=== PATIENT | female | born 1955 | race Asian ===

== ENCOUNTER 2016-10-27 11:22 | Inpatient (IN) | payer BC ==
[2016-10-27] MEDS ORDERED: MECLIZINE 12.5 MG TAB PO STA (12:24)
[2016-10-27] MEDS ORDERED: DIAZEPAM 5 MG/ML 2 ML SYRINGE IVP STA (12:24)
--- NOTE | 2016-10-27 12:28 | ED ---
General Adult HPI - General Chief complaint: Dizziness Stated complaint: Vertigo Time Seen by Provider: 10/27/16 11:30 Source: patient, family, RN notes reviewed Mode of arrival: wheelchair Limitations: no limitations - History of Present Illness Initial comments: This is a 61-year-old female who presents to the emergency department stating that last night she started to become dizzy. Patient states she feels as though the room around her is moving. Patient denies any nausea with it. Patient states when she moves it does make the symptoms worse. Patient denies any headache patient denies any numbness or focal weakness. Patient denies any fever or chills. Patient denies any history of vertigo. Patient denies any increased hearing loss. Patient denies any tinnitus. Patient denies any palpitations chest pain difficulty breathing shortness of breath. Patient denies any abdominal pain. Patient denies any nausea vomiting diarrhea. - Related Data Home Medications Medication Instructions Recorded Confirmed Besivance 0.6% 1 drop RIGHT EYE TID 10/27/16 10/27/16 Carvedilol [Coreg] 12.5 mg PO BID 10/27/16 10/27/16 Cyanocobalamin (Vitamin B-12) 1,000 mcg PO HS 10/27/16 10/27/16 [Vitamin B-12] Difluprednate [Durezol] 1 drop RIGHT EYE DAILY 10/27/16 10/27/16 Ferrous Sulfate [Feosol] 325 mg PO HS 10/27/16 10/27/16 Furosemide [Lasix] 20 mg PO BID@0900,1600 10/27/16 10/27/16 Prolensa 0.07% 1 drop RIGHT EYE DAILY 10/27/16 10/27/16 Spironolactone [Aldactone] 12.5 mg PO BID 10/27/16 10/27/16 Valsartan [Diovan] 320 mg PO DAILY 10/27/16 10/27/16 Previous Rx's Medication Instructions Recorded Aspirin 81 mg PO DAILY chew 04/28/16 Glimepiride [Amaryl] 1 mg PO AC-SUPPER #30 tab 04/28/16 Glimepiride [Amaryl] 2 mg PO AC-BRKFST #30 tab 04/28/16 amLODIPine [Norvasc] 5 mg PO DAILY #30 tab 04/28/16 Allergies Allergy/AdvReac Type Severity Reaction Status Date / Time shellfish derived [Shellfish] Allergy Unknown Verified 10/27/16 12:17 Review of Systems ROS Statement: Those systems with pertinent positive or pertinent negative responses have been documented in the HPI. ROS Other: All systems not noted in ROS Statement are negative. Past Medical History Past Medical History: Heart Failure, Diabetes Mellitus, GERD/Reflux, Hyperlipidemia History of Any Multi-Drug Resistant Organisms: None Reported Past Surgical History: Back Surgery Additional Past Surgical History / Comment(s): ZELDA IN BACK-LAMINECTOMY, eye Past Anesthesia/Blood Transfusion Reactions: No Reported Reaction Past Psychological History: No Psychological Hx Reported Smoking Status: Never smoker Past Alcohol Use History: None Reported Past Drug Use History: None Reported - Past Family History Mother Family Medical History: Hypertension Father Family Medical History: Congestive Heart Failure (CHF) General Exam - General Exam Comments Initial Comments: GENERAL: Patient is well-developed and well-nourished. Patient is nontoxic and well- hydrated and is in mild distress. ENT: Neck is soft and supple. No significant lymphadenopathy is noted. Oropharynx is clear. Moist mucous membranes. Neck has full range of motion without eliciting any pain. EYES: The sclera were anicteric and conjunctiva were pink and moist. Extraocular movements were intact and pupils were equal round and reactive to light. Eyelids were unremarkable. Minimal nystagmus was seen when looking to the right PULMONARY: Unlabored respirations. Good breath sounds bilaterally. No audible rales rhonchi or wheezing was noted. CARDIOVASCULAR: There is a regular rate and rhythm without any murmurs gallops or rubs. ABDOMEN: Soft and nontender with normal bowel sounds. No palpable organomegaly was noted. There is no palpable pulsatile mass. SKIN: Skin is clear with no lesions or rashes and otherwise unremarkable. NEUROLOGIC: Patient is alert and oriented x3. Cranial nerves II through XII are grossly intact. Motor and sensory are also intact. Normal speech, volume and content. Symmetrical smile. Cerebellar exam grossly intact. MUSCULOSKELETAL: Normal extremities with adequate strength and full range of motion. No lower extremity swelling or edema. No calf tenderness. LYMPHATICS: No significant lymphadenopathy is noted PSYCHIATRIC: Normal psychiatric evaluation. Normal interpersonal interactions appears functionally intact in deals appropriately with others. No signs of depression. No signs of anxiety. Limitations: no limitations Course Vital Signs 10/27/16 10/27/16 10/27/16 11:23 11:52 13:28 Temperature 97.6 F 97.4 F L Pulse Rate 73 72 74 Respiratory 16 16 15 Rate Blood Pressure 114/55 123/66 128/64 O2 Sat by Pulse 98 96 96 Oximetry 10/27/16 14:40 Temperature Pulse Rate 78 Respiratory 14 Rate Blood Pressure 130/61 O2 Sat by Pulse 96 Oximetry Medical Decision Making - Medical Decision Making EKG shows normal sinus rhythm at 72 bpm WV interval is 106 QRS is 90 QT interval 392 QTC is 429. Patient's EKG shows no ST segment elevation or depression or T wave abnormalities are noted Chest x-ray shows no acute abdomen noted. CT of the brain shows no acute mallet. When I noted the troponin being elevated I reinterviewed the patient about chest pain or difficulty breathing and she stated she never had any chest pain or problems breathing. Patient's hemoglobin was low and the white count was elevated. I compared to previous white counts she is always had a high white count but never this high. - Lab Data Result diagrams: 10/27/16 12:40 10/27/16 12:40 Lab Results 10/27/16 10/27/16 10/27/16 Range/Units 12:40 12:40 12:40 WBC 34.7 H* (3.8-10.6) k/uL RBC 2.71 L (3.80-5.40) m/uL Hgb 7.6 L (11.4-16.0) gm/dL Hct 23.7 L (34.0-46.0) % MCV 87.5 (80.0-100.0) fL MCH 28.0 (25.0-35.0) pg MCHC 32.0 (31.0-37.0) g/dL RDW 16.7 H (11.5-15.5) % Plt Count 292 (150-450) k/uL Neutrophils % (Manual) 83.0 % Band Neutrophils % 5.5 % Lymphocytes % (Manual) 5.5 % Monocytes % (Manual) 2.0 % Eosinophils % (Manual) 0.5 % Metamyelocytes % 1.0 % Myelocytes % 2.5 % Neutrophils # (Manual) 30.7 H (1.3-7.7) k/uL Lymphocytes # (Manual) 1.9 (1.0-4.8) k/uL Monocytes # (Manual) 0.7 (0-1.0) k/uL Eosinophils # (Manual) 0.2 (0-0.7) k/uL Nucleated RBCs 0 (0-0) /100 WBC Manual Slide Review Performed Toxic Granulation Present Polychromasia Present Anisocytosis Slight PT (9.0-12.0) sec INR (<1.1) APTT (22.0-30.0) sec Sodium 141 (137-145) mmol/L Potassium 4.1 (3.5-5.1) mmol/L Chloride 106 (98-107) mmol/L Carbon Dioxide 26 (22-30) mmol/L Anion Gap 9 mmol/L BUN 31 H (7-17) mg/dL Creatinine 0.95 (0.52-1.04) mg/dL Est GFR (MDRD) Af Amer >60 (>60 ml/min/1.73 sqM) Est GFR (MDRD) Non-Af >60 (>60 ml/min/1.73 sqM) Glucose 223 H (74-99) mg/dL Calcium 8.2 L (8.4-10.2) mg/dL Magnesium 2.3 (1.6-2.3) mg/dL Total Bilirubin 0.5 (0.2-1.3) mg/dL AST 46 H (14-36) U/L ALT 50 (9-52) U/L Alkaline Phosphatase 70 (38-126) U/L Total Creatine Kinase 134 (30-135) U/L CK-MB (CK-2) 0.9 (0.0-2.4) ng/mL CK-MB (CK-2) Rel Index 0.7 Troponin I 0.978 H* (0.000-0.034) ng/mL Total Protein 6.1 L (6.3-8.2) g/dL Albumin 3.0 L (3.5-5.0) g/dL Urine Color Urine Appearance (Clear) Urine pH (5.0-8.0) Ur Specific [place] (1.001-1.035) Urine Protein (Negative) Urine Glucose (UA) (Negative) Urine Ketones (Negative) Urine Blood (Negative) Urine Nitrite (Negative) Urine Bilirubin (Negative) Urine Urobilinogen (<2.0) mg/dL Ur Leukocyte Esterase (Negative) Urine RBC (0-5) /hpf Urine WBC (0-5) /hpf Ur Squamous Epith Cells (0-4) /hpf Urine Bacteria (None) /hpf Hyaline Casts (0-2) /lpf Urine Mucus (None) /hpf 10/27/16 10/27/16 Range/Units 12:40 14:33 WBC (3.8-10.6) k/uL RBC (3.80-5.40) m/uL Hgb (11.4-16.0) gm/dL Hct (34.0-46.0) % MCV (80.0-100.0) fL MCH (25.0-35.0) pg MCHC (31.0-37.0) g/dL RDW (11.5-15.5) % Plt Count (150-450) k/uL Neutrophils % (Manual) % Band Neutrophils % % Lymphocytes % (Manual) % Monocytes % (Manual) % Eosinophils % (Manual) % Metamyelocytes % % Myelocytes % % Neutrophils # (Manual) (1.3-7.7) k/uL Lymphocytes # (Manual) (1.0-4.8) k/uL Monocytes # (Manual) (0-1.0) k/uL Eosinophils # (Manual) (0-0.7) k/uL Nucleated RBCs (0-0) /100 WBC Manual Slide Review Toxic Granulation Polychromasia Anisocytosis PT 10.2 (9.0-12.0) sec INR 1.0 (<1.1) APTT 27.8 (22.0-30.0) sec Sodium (137-145) mmol/L Potassium (3.5-5.1) mmol/L Chloride (98-107) mmol/L Carbon Dioxide (22-30) mmol/L Anion Gap mmol/L BUN (7-17) mg/dL Creatinine (0.52-1.04) mg/dL Est GFR (MDRD) Af Amer (>60 ml/min/1.73 sqM) Est GFR (MDRD) Non-Af (>60 ml/min/1.73 sqM) Glucose (74-99) mg/dL Calcium (8.4-10.2) mg/dL Magnesium (1.6-2.3) mg/dL Total Bilirubin (0.2-1.3) mg/dL AST (14-36) U/L ALT (9-52) U/L Alkaline Phosphatase (38-126) U/L Total Creatine Kinase (30-135) U/L CK-MB (CK-2) (0.0-2.4) ng/mL CK-MB (CK-2) Rel Index Troponin I (0.000-0.034) ng/mL Total Protein (6.3-8.2) g/dL Albumin (3.5-5.0) g/dL Urine Color Yellow Urine Appearance Cloudy H (Clear) Urine pH 6.0 (5.0-8.0) Ur Specific [place] 1.012 (1.001-1.035) Urine Protein 3+ H (Negative) Urine Glucose (UA) Trace H (Negative) Urine Ketones Negative (Negative) Urine Blood Trace H (Negative) Urine Nitrite Negative (Negative) Urine Bilirubin Negative (Negative) Urine Urobilinogen <2.0 (<2.0) mg/dL Ur Leukocyte Esterase Trace H (Negative) Urine RBC 5 (0-5) /hpf Urine WBC 19 H (0-5) /hpf Ur Squamous Epith Cells 1 (0-4) /hpf Urine Bacteria Rare H (None) /hpf Hyaline Casts 5 H (0-2) /lpf Urine Mucus Rare H (None) /hpf Disposition Clinical Impression: Anemia, Leukocytosis, Elevated troponin, Vertigo Disposition: ADMITTED IP TO THIS [facility] Time of Disposition: 16:02
[2016-10-27 13:04] LABS: Anisocytosis Slight; CH 27.9; CHCM 32.1; HCT 23.7 % (34.0-46.0); HDW 2.79; HGB 7.6 gm/dL (11.4-16.0); Immature Gran Flag Slight; MCV 87.5 fL (80.0-100.0); Mean Platelet Volume 8.4; RBC 2.71 m/uL (3.80-5.40); RDW 16.7 % (11.5-15.5); WBC (Perox) 35.13
[2016-10-27 13:06] LABS: WBC 34.7 k/uL (3.8-10.6)
[2016-10-27 13:11] LABS: Partial Thromboplastin Time 27.8 sec (22.0-30.0); Prothrombin Time 10.2 sec (9.0-12.0)
[2016-10-27 13:17] LABS: ALT 50 U/L (9-52); AST 46 U/L (14-36); Add Differential Manual Differential; Alkaline Phosphatase 70 U/L (38-126); Anion Gap 9 mmol/L; Blood Urea Nitrogen 31 mg/dL (7-17); Calcium 8.2 mg/dL (8.4-10.2); Carbon Dioxide 26 mmol/L (22-30); Chloride 106 mmol/L (98-107); Glucose 223 mg/dL (74-99); Magnesium 2.3 mg/dL (1.6-2.3); Non-African American GFR(MDRD) >60 (>60 ml/min/1.73 sqM); Potassium 4.1 mmol/L (3.5-5.1); Sodium 141 mmol/L (137-145); Total Bilirubin 0.5 mg/dL (0.2-1.3); Total Protein 6.1 g/dL (6.3-8.2)
[2016-10-27 13:19] LABS: Band Neutrophils % 5.5 %; Manual Review Performed; Myelocytes % 2.5 %; Nucleated Red Blood Cells 0 /100 WBC (0-0); Total Cells Counted 200
[2016-10-27 13:21] LABS: Polychromasia Present; Toxic Granulation Present
--- NOTE | 2016-10-27 13:29 | CT ---
EXAMINATION TYPE: CT brain wo con DATE OF EXAM: 10/27/2016 1:12 PM COMPARISON: NONE HISTORY: weakness, dizzy, vertigo CT DLP: 1036.0 mGycm. Automated Exposure Control for Dose Reduction was Utilized. TECHNIQUE: CT scan of the head is performed without contrast. FINDINGS: There is no acute intracranial hemorrhage, mass effect, or midline shift identified. The ventricles and sulci are within normal limits in size. There is asymmetric thinning of the right jimmy s. There is abnormal curvilinear soft tissue in the posterior right globe near level of retina on axi al image 11. There is mild to moderate mucosal thickening posteriorly in the dominant right sphenoid sinus. There is mild to moderate mucosal thickening in the bilateral ethmoid sinuses. There is mucosa l thickening and patchy opacification in the left frontal sinus. There is mild mucosal thickening in inferior right frontal sinus. There is 5 mm ossific density right anterior ethmoid sinus suspect oste anita on axial image 11. There is mild to moderate mucosal thickening in bilateral maxillary sinuses wi th air-fluid level in the right maxillary sinus noted. IMPRESSION: No acute intracranial hemorrhage or midline shift is seen. Acute on chronic paranasal si nus disease is present. Irregular soft tissue posterior right globe at level of retina could reflect infection or neoplasm, ophthalmology follow-up advised.
--- NOTE | 2016-10-27 13:29 | XR ---
EXAMINATION TYPE: XR chest 2V DATE OF EXAM: 10/27/2016 1:16 PM COMPARISON: 06/12/2016 TECHNIQUE: PA and lateral views submitted. HISTORY: Vertigo and congestion FINDINGS: The lungs are clear and there is no pneumothorax, pleural effusion, or focal pneumonia. The heart s ize is prominent there is hypertrophic and degenerative change spine. Previous surgery involving the lower thoracic spine noted. IMPRESSION: 1. Cardiomegaly.
[2016-10-27 13:35] LABS: Creatine Kinase MB 0.9 ng/mL (0.0-2.4)
[2016-10-27 13:42] LABS: Troponin I 0.978 ng/mL (0.000-0.034)
[2016-10-27 14:58] LABS: Appearance,Urine Cloudy (Clear); Bacteria,Urine Rare /hpf; Bilirubin,Urine Negative (Negative); Glucose,Urine (UA) Trace (Negative); Ketones,Urine Negative (Negative); Leukocyte Esterase,Urine Trace (Negative); Mucus,Urine Rare /hpf; Nitrite,Urine Negative (Negative); Particle Count 8326; Protein,Urine 3+ (Negative); RBC,Urine 5 /hpf (0-5); Specific Gravity,Urine 1.012 (1.001-1.035); Squamous Epithelial Cell,Urine 1 /hpf (0-4); UA Billing (MACRO vs. MICRO) MICRO; Urobilinogen,Urine <2.0 mg/dL (<2.0); WBC,Urine 19 /hpf (0-5)
[2016-10-27] MEDS ORDERED: SODIUM CHLORIDE 0.9% 1,000 ML IV ONE (16:02)
--- NOTE | 2016-10-27 17:14 | P.HPIM ---
History of Present Illness H&P Date: 10/27/16 Chief Complaint: Vertigo generalized weakness This is a 61-year-old female one of Dr. Ortiz with a previous medical history significant for hypertension and hypertensive cardio vascular disease, diabetes mellitus type 2 with diabetic retinopathy followed by laser therapy and recent cataract surgery by 2 weeks ago of the right eye, history of proteinuria, and leukocytosis , patient was brought into the emergency department at [facility] with her daughter via EMS after she went with her daughter to [facility] in the morning and she did not get up after that after she had a a soup and a salad and she could not go back home, patient stated that yesterday she had felt quite weak and she could not go to the bathroom because of generalized weakness and significant vertigo without any nausea or vomiting at that time. Patient was seen in the ER and had a computed tomography scan of the brain that did not show any evidence of acute infarct or bleed, there was some changes in the back of the right eye, patient was not dizzy at the time of evaluation she did receive meclizine and Valium in the ER however I was called to come and see the patient because of abnormal laboratory evaluation including leukocytosis and anemia with elevated troponin. I reviewed her EKG and it was normal sinus rhythm without any acute ST-T wave changes, we will continue to monitor the patient very closely and we will check iron studies, reticulocyte count, also will check a urine protein by immunofixation test and serum protein electrophoresis along with light chain protein as well. Review of Systems Constitutional: Reports fatigue, Reports lethargy, Reports malaise, Reports poor appetite, Reports weakness, Reports weight loss Eyes: right blurred vision, right loss of peripheral vision, denies bulging eye , denies decreased vision Ears: deny: decreased hearing Ears, nose, mouth and throat: Denies epistaxis, Denies neck lump, Denies swelling in throat, Denies sore throat, Denies vertigo Cardiovascular: Reports high blood pressure, Denies chest pain, Denies dyspnea on exertion, Denies irregular heart beat, Denies phlebitis, Denies rapid heart beat, Denies shortness of breath, Denies syncope Respiratory: Reports congestion, Denies cough, Denies cough with sputum, Denies home oxygen, Denies pain, Denies sleep apnea, Denies snoring, Denies wheezing Gastrointestinal: Denies abdominal pain, Denies bloating, Denies BRBPR, Denies change in bowel habits, Denies heartburn, Denies melena, Denies nausea, Denies vomiting Genitourinary: Denies dysuria, Denies hematuria Musculoskeletal: Reports gait dysfunction, Denies myalgias Musculoskeletal: absent: ankle pain, ankle stiffness, ankle swelling, elbow pain , elbow stiffness, elbow swelling, foot pain, foot stiffness, foot swelling, hand pain, hand stiffness, hand swelling, hip pain, hip stiffness, hip swelling , knee pain, knee stiffness, knee swelling, shoulder pain, shoulder stiffness, shoulder swelling, wrist pain, wrist stiffness, wrist swelling Integumentary: Denies pruritus, Denies rash Neurological: Reports gait dysfunction, Reports visual changes, Denies numbness , Denies weakness Psychiatric: Denies anxiety, Denies depression Endocrine: Denies fatigue, Denies weight change Past Medical History Past Medical History: Blood Disorder, Heart Failure, Diabetes Mellitus, GERD/ Reflux, Hyperlipidemia, Hypertension, Osteoarthritis (OA) Additional Past Medical History / Comment(s): Broken heart syndrome. Patient had an echocardiogram about 2 weeks ago and showed normal ejection fraction according to the patient. History of Any Multi-Drug Resistant Organisms: None Reported Past Surgical History: Back Surgery Additional Past Surgical History / Comment(s): ZELDA IN BACK-LAMINECTOMY, right cataract surgery, . Past Anesthesia/Blood Transfusion Reactions: No Reported Reaction Past Psychological History: No Psychological Hx Reported Smoking Status: Never smoker Past Alcohol Use History: None Reported Past Drug Use History: None Reported - Past Family History Mother Family Medical History: Cancer (Mother at age of 83 from lung cancer.), Hypertension Father Family Medical History: Congestive Heart Failure (CHF) (Father at age of 79 from congestive heart failure.) Sister(s) Family Medical History: Congestive Heart Failure (CHF) (One sister at age of 68 from congestive heart failure.) Brother(s) Family Medical History: No Reported History (Patient has one brother no major medical problems.) Daughter(s) Family Medical History: No Reported History (Patient has 2 daughters no major medical problems.) Medications and Allergies Home Medications Medication Instructions Recorded Confirmed Type Besivance 0.6% 1 drop RIGHT EYE TID 10/27/16 10/27/16 History Carvedilol [Coreg] 12.5 mg PO BID 10/27/16 10/27/16 History Cyanocobalamin (Vitamin B-12) 1,000 mcg PO HS 10/27/16 10/27/16 History [Vitamin B-12] Difluprednate [Durezol] 1 drop RIGHT EYE DAILY 10/27/16 10/27/16 History Ferrous Sulfate [Feosol] 325 mg PO HS 10/27/16 10/27/16 History Furosemide [Lasix] 20 mg PO BID@0900,1600 10/27/16 10/27/16 History Prolensa 0.07% 1 drop RIGHT EYE DAILY 10/27/16 10/27/16 History Spironolactone [Aldactone] 12.5 mg PO BID 10/27/16 10/27/16 History Valsartan [Diovan] 320 mg PO DAILY 10/27/16 10/27/16 History Allergies Allergy/AdvReac Type Severity Reaction Status Date / Time shellfish derived [Shellfish] Allergy Unknown Verified 10/27/16 12:17 Physical Exam Vitals: Vital Signs Temp Pulse Resp BP Pulse Ox 10/27/16 16:23 98.9 F 82 15 154/81 96 - Constitutional General appearance: average body habitus, mild distress - EENT Eyes: anicteric sclerae, PERRLA, no ptosis, no scleral icterus, normal appearance ENT: hearing grossly normal, NA/AT, normal oropharynx, no thrush Ears: bilateral: normal - Neck Neck: no lymphadenopathy, normal ROM, no rigidity, no stridor, no thyromegaly Carotids: bilateral: upstroke normal Thyroid: bilateral: normal size - Respiratory Respiratory: bilateral: diminished, negative: dullness, rales, rhonchi, wheezing , prolonged expiration, prolonged inspiration - Cardiovascular Rhythm: regular Heart sounds: normal: S1, S2 Abnormal Heart Sounds: systolic murmur, no rub, no S3 Gallop, no click - Gastrointestinal General gastrointestinal: normal bowel sounds, soft, no splenomegaly, no tenderness, no umbilical hernia, no ventral hernia - Integumentary Integumentary: normal, normal turgor - Neurologic Neurologic: CNII-XII intact - Musculoskeletal Musculoskeletal: generalized weakness, strength equal bilaterally - Psychiatric Psychiatric: A&O x's 3, appropriate affect, intact judgment & insight Results CBC & Chem 7: 10/29/16 10:50 10/29/16 10:50 Thrombosis Risk Factor Assmnt - DVT/VTE Prophylaxis DVT/VTE Prophylaxis: Mechanical Prophylaxis ordered Assessment and Plan Plan: Assessment and plan: 1. Acute symptomatic anemia with leukocytosis and possibility of MDS VS MPD. Obtained iron studies, B12, folic acid, reticulocyte count, ferritin level, serum protein electrophoresis, urine protein by immunofixation, serum light chain Lambda and Cal[place]oun. Hematology consultation will be obtained from Dr. Madrid.will need BMB. 2. Recent right cataract surgery with minimal bleed behind the globe. Obtained ophthalmology consultation from Dr. Cathy Chairez. continue current eyedrops. 3. Influenza type A. Will place in droplet precautions and will start Tamiflu 75 mg orally twice daily for 5 days.Her and her daughter will need to be treated. 4. 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 Continue Lasix 20 mg orally twice every day, Diovan 320 g orally was every day, Spironolactone 12.5 mg orally twice every day, also Coreg 12.5 mg orally twice every day. 5. Troponin leak of unclear etiology could be related to her anemia. Consult cardiology. 6. History of diabetes mellitus type 2. Continue with sliding scale insulin. 7. Hypertension and hypertensive cardiovascular disease. Continue Diovan 320 mg orally once every day, and Coreg 12.5 mg orally twice every day. 8. Recent upper respiratory tract infection. Improved we will check flu swab. 9. DVT prophylaxis. Heparin 5000 units subcutaneously every 12 hours. 10. GI prophylaxis. Continue Protonix 40 mg orally once every day. 11. Chronic bilateral pleural effusion. Patient has been under the care of pulmonary Dr. Cabrera. 12. Admitted to inpatient. 13. Patient is full code. 14. Estimated length of stay 2 midnights.
[2016-10-27] MEDS: GLIMEPIRIDE 1 MG TAB PO SCH (18:32)
[2016-10-27] MEDS: CARVEDILOL 12.5 MG TAB PO SCH (18:32)
[2016-10-27 18:41] LABS: Glucose,Whole Blood 166 mg/dL (75-99)
[2016-10-27 18:44] LABS: Anisocytosis Slight; CH 28.2; HCT 24.7 % (34.0-46.0); HDW 2.81; HGB 7.7 gm/dL (11.4-16.0); Immature Gran Flag Marked; MCH 27.8 pg (25.0-35.0); MCHC 31.3 g/dL (31.0-37.0); MCV 88.9 fL (80.0-100.0); Mean Platelet Volume 8.8; RBC 2.78 m/uL (3.80-5.40); Reticulocyte % 1.6 % (0.5-2.0); WBC (Perox) 40.88
[2016-10-27 18:45] LABS: WBC 36.8 k/uL (3.8-10.6)
[2016-10-27 18:49] LABS: Iron 14 ug/dL (37-170); LDH 1816 U/L (313-618)
[2016-10-27 19:00] LABS: % Iron Saturation 6.5 % (20-50); Rheumatoid Factor, Qnt <9 IU/mL (<12); Total Iron Binding Capacity 216 ug/dL (265-497)
[2016-10-27] MEDS: ACETAMINOPHEN TAB 325 MG TAB PO PRN (19:01)
[2016-10-27 19:14] LABS: Add Differential Manual Differential
[2016-10-27 19:17] LABS: Myelocytes % 3.5 %; Nucleated Red Blood Cells 0 /100 WBC (0-0); Total Cells Counted 200; Toxic Granulation Present
[2016-10-27 19:18] LABS: Manual Review Performed
[2016-10-27 20:18] LABS: Vitamin B12 >1000 pg/mL (239-931)
[2016-10-27 21:03] LABS: Glucose,Whole Blood 125 mg/dL (75-99)
[2016-10-27] MEDS: BESIVANCE 0.6% RIGHT EYE SCH (21:16)
[2016-10-27] MEDS: CYANOCOBALAMIN 500 MCG TAB PO SCH (21:16)
[2016-10-27] MEDS: FERROUS SULFATE 325 MG TAB PO SCH (21:16)
[2016-10-27] MEDS: SPIRONOLACTONE 25 MG TAB PO SCH (21:17)
[2016-10-27] MEDS: HEPARIN SODIUM,PORCINE 5,000 UNIT/ML 1 ML VIAL SQ SCH (23:01)
[2016-10-27] MEDS: OSELTAMIVIR 75 MG CAP PO SCH (23:02)
[2016-10-28 00:56] LABS: Anisocytosis Slight; Basophils # (A) 0.4 k/uL (0-0.2); Basophils % (A) 1 %; CH 28.3; CHCM 32.1; Eosinophils # (A) 0.1 k/uL (0-0.7); Eosinophils % (A) 0 %; HCT 20.9 % (34.0-46.0); HDW 2.81; Luc # (Auto) 0.35; Luc % (Auto) 1; Lymphocytes # (A) 1.8 k/uL (1.0-4.8); Lymphocytes % (A) 6 %; MCH 27.8 pg (25.0-35.0); MCHC 31.3 g/dL (31.0-37.0); MCV 88.8 fL (80.0-100.0); Mean Platelet Volume 8.8; Monocytes # (A) 1.1 k/uL (0-1.0); Monocytes % (A) 4 %; Neutrophils # (A) 24.8 k/uL (1.3-7.7); Neutrophils % (A) 87 %; RBC 2.35 m/uL (3.80-5.40); RDW 16.9 % (11.5-15.5); WBC (Perox) 28.81
[2016-10-28 00:58] LABS: WBC 28.5 k/uL (3.8-10.6)
[2016-10-28 01:02] LABS: HGB 6.5 gm/dL (11.4-16.0)
[2016-10-28] MEDS: ACETAMINOPHEN TAB 325 MG TAB PO PRN (06:20)
[2016-10-28] MEDS: CARVEDILOL 12.5 MG TAB PO SCH ×2 (06:21→17:09)
[2016-10-28] MEDS: GLIMEPIRIDE 2 MG TAB PO SCH ×2 (06:21→08:24)
[2016-10-28] MEDS: PANTOPRAZOLE 40 MG TABLET PO SCH (06:21)
[2016-10-28 06:25] LABS: Glucose,Whole Blood 77 mg/dL (75-99)
[2016-10-28 06:45] LABS: Basophils # (A) 0.8 k/uL (0-0.2); Basophils % (A) 2 %; CH 28.9; Eosinophils # (A) 0.2 k/uL (0-0.7); Eosinophils % (A) 1 %; HDW 2.94; Immature Gran Flag Marked; Luc # (Auto) 0.37; Luc % (Auto) 1; Lymphocytes % (A) 6 %; MCH 27.6 pg (25.0-35.0); MCHC 31.4 g/dL (31.0-37.0); MCV 88.1 fL (80.0-100.0); Mean Platelet Volume 9.1; Monocytes # (A) 1.5 k/uL (0-1.0); Monocytes % (A) 4 %; Neutrophils # (A) 31.9 k/uL (1.3-7.7); Neutrophils % (A) 89 %; RBC 3.19 m/uL (3.80-5.40); WBC (Perox) 37.35
[2016-10-28 06:49] LABS: WBC 35.9 k/uL (3.8-10.6)
[2016-10-28 06:51] LABS: HGB 8.8 gm/dL (11.4-16.0)
[2016-10-28 07:03] LABS: ALT 53 U/L (9-52); AST 38 U/L (14-36); Alkaline Phosphatase 86 U/L (38-126); Anion Gap 8 mmol/L; Blood Urea Nitrogen 26 mg/dL (7-17); Calcium 7.9 mg/dL (8.4-10.2); Carbon Dioxide 23 mmol/L (22-30); Chloride 108 mmol/L (98-107); Glucose 75 mg/dL (74-99); Non-African American GFR(MDRD) >60 (>60 ml/min/1.73 sqM); Potassium 4.1 mmol/L (3.5-5.1); Sodium 139 mmol/L (137-145); Total Bilirubin 0.6 mg/dL (0.2-1.3); Total Protein 5.9 g/dL (6.3-8.2)
[2016-10-28] MEDS: SPIRONOLACTONE 25 MG TAB PO SCH ×2 (08:28→20:16)
[2016-10-28] MEDS: DUREZOL RIGHT EYE SCH (08:29)
[2016-10-28] MEDS: OSELTAMIVIR 75 MG CAP PO SCH ×2 (08:29→20:16)
[2016-10-28] MEDS: ASPIRIN 81 MG CHEW PO SCH (08:29)
[2016-10-28] MEDS: HEPARIN SODIUM,PORCINE 5,000 UNIT/ML 1 ML VIAL SQ SCH ×2 (08:29→20:16)
[2016-10-28] MEDS: amLODIPine 5 MG TAB PO SCH (08:29)
[2016-10-28] MEDS: ILEVRO 0.3% RIGHT EYE SCH (08:29)
[2016-10-28] MEDS: FUROSEMIDE 20 MG TAB PO SCH ×2 (08:29→17:09)
[2016-10-28] MEDS: BESIVANCE 0.6% RIGHT EYE SCH ×3 (08:29→20:17)
--- NOTE | 2016-10-28 11:45 | CONS ---
DATE OF CONSULTATION: Mrs. Hebert is a 61-year-old female who is seen for cardiac evaluation. This patient's past medical records and electronic emergency room records reviewed. Patient came to the emergency room with the complaint that she has been feeling dizzy. She says that when she moves around the dizziness is worse. She did not have any nausea or vomiting and she was feeling generally weak. Patient was found to have leukocytosis and low hemoglobin and subsequently she was admitted. This patient was admitted in April of 2016 with congestive cardiac failure. Patient had cardiomyopathy and she has been treated with medications. Home medications include Coreg 12.5 mg b.i.d., vitamin B12, Feosol, Lasix 20 mg b.i.d., Diovan 320 mg daily, Aldactone 12.5 mg daily, aspirin, Amaryl and Norvasc 5 mg daily. Past medical history includes history of laminectomy, bel in the back, history of diabetes, hyperlipidemia and congestive cardiac failure. SOCIAL HISTORY: Patient is never a smoker. Physical examination at present reveals a 61-year-old female who does not appear to be in any acute distress. Patient's blood pressure is 135/63 mmHg, heart rate is 80 per minute. Temperature this morning was 100.8. Head/ENT examination is negative. Neck is supple. There is no increase in jugular venous pressure. Both the carotid pulses are felt. There is no bruit. Chest is symmetrical. HEART: The PMI is not felt. First and second heart sounds are normal. Lungs are fairly clear to auscultation and percussion. Abdomen is soft. Liver and spleen are not enlarged. Bowel sounds are heard. EXTREMITIES: Peripheral pulsations are 2+. EKG shows normal sinus rhythm without any acute ischemic changes. Patient's initial white count was 28,500, hemoglobin is 6.5. Subsequent hemoglobin is 8.8. Patient's platelet count is normal. Electrolytes are normal. Chest x-ray does not show any evidence of failure. Influenza is positive. FINAL IMPRESSION: This patient primarily admitted with generalized weakness and dizziness. This is because most likely secondary to possible flu and temperature and the low hemoglobin. Patient is stable cardiac dickey. There is no evidence of any overt congestive cardiac failure. We will continue the current cardiac medications. Echo and Doppler study will be done. Further recommendations will be made pending the hematological evaluation.
[2016-10-28 11:47] LABS: Glucose,Whole Blood 134 mg/dL (75-99)
[2016-10-28] MEDS: VALSARTAN 160 MG TAB PO SCH (12:10)
--- NOTE | 2016-10-28 14:17 | P.PN ---
Subjective This is a 61-year-old female one of Dr. Ortiz with a previous medical history significant for hypertension and hypertensive cardio vascular disease, diabetes mellitus type 2 with diabetic retinopathy followed by laser therapy and recent cataract surgery by 2 weeks ago of the right eye, history of proteinuria, and leukocytosis , patient was brought into the emergency department at [facility] with her daughter via EMS after she went with her daughter to [facility] in the morning and she did not get up after that after she had a a soup and a salad and she could not go back home, patient stated that yesterday she had felt quite weak and she could not go to the bathroom because of generalized weakness and significant vertigo without any nausea or vomiting at that time. Patient was seen in the ER and had a computed tomography scan of the brain that did not show any evidence of acute infarct or bleed, there was some changes in the back of the right eye, patient was not dizzy at the time of evaluation she did receive meclizine and Valium in the ER however I was called to come and see the patient because of abnormal laboratory evaluation including leukocytosis and anemia with elevated troponin. I reviewed her EKG and it was normal sinus rhythm without any acute ST-T wave changes, we will continue to monitor the patient very closely and we will check iron studies, reticulocyte count, also will check a urine protein by immunofixation test and serum protein electrophoresis along with light chain protein as well. 10/28: White count is up to 35.9. Hemoglobin of 8.8 after 2 units of packed RBCs. Iron, TIBC and iron saturation are all low. Ferritin is 1120. AST and ALT are slightly elevated. Repeat troponins were 0.646 and 0.683. Cardiology is on consult with recommendations for medical management. Echocardiogram has been ordered. Oncology is on consult with plan for outpatient workup. She is continued on Tamiflu. Anticipate discharge home tomorrow. Objective - Vital Signs Vital signs: Vital Signs Temp 99.3 F 10/28/16 08:00 Pulse 80 10/28/16 08:00 Resp 20 10/28/16 08:00 BP 135/63 10/28/16 08:00 Pulse Ox 93 L 10/28/16 08:00 Intake & Output 10/27/16 10/28/16 10/28/16 18:59 06:59 18:59 Intake Total 1360 310 Balance 1360 310 Weight 51.3 kg Intake: Intake, IV Titration 700 Amount Sodium Chloride 0.9% 1, 700 000 ml @ 100 mls/hr IV . Q10H ONE Rx#:[id number] Oral 350 Blood Product 310 310 As-1 Unit 0 310 [id number] Rc As-1 Unit 310 [id number] Other: Voiding Method Toilet # Voids 1 - Exam General appearance: average body habitus, mild distress - EENT Eyes: anicteric sclerae, PERRLA, no ptosis, no scleral icterus, normal appearance ENT: hearing grossly normal, NA/AT, normal oropharynx, no thrush Ears: bilateral: normal - Neck Neck: no lymphadenopathy, normal ROM, no rigidity, no stridor, no thyromegaly Carotids: bilateral: upstroke normal Thyroid: bilateral: normal size - Respiratory Respiratory: bilateral: diminished, negative: dullness, rales, rhonchi, wheezing , prolonged expiration, prolonged inspiration - Cardiovascular Rhythm: regular Heart sounds: normal: S1, S2 Abnormal Heart Sounds: systolic murmur, no rub, no S3 Gallop, no click - Gastrointestinal General gastrointestinal: normal bowel sounds, soft, no splenomegaly, no tenderness, no umbilical hernia, no ventral hernia - Integumentary Integumentary: normal, normal turgor - Neurologic Neurologic: CNII-XII intact - Musculoskeletal Musculoskeletal: generalized weakness, strength equal bilaterally - Psychiatric Psychiatric: A&O x's 3, appropriate affect, intact judgment & insight - Labs CBC & Chem 7: 10/28/16 06:25 10/28/16 06:25 Labs: Abnormal Lab Results - Last 24 Hours (Table) 10/27/16 10/27/16 10/27/16 Range/Units 17:35 17:51 17:51 WBC 36.8 H* (3.8-10.6) k/uL RBC 2.78 L (3.80-5.40) m/uL Hgb 7.7 L (11.4-16.0) gm/dL Hct 24.7 L (34.0-46.0) % RDW 17.0 H (11.5-15.5) % Neutrophils # (1.3-7.7) k/uL Neutrophils # (Manual) 32.4 H (1.3-7.7) k/uL Monocytes # (0-1.0) k/uL Basophils # (0-0.2) k/uL Chloride (98-107) mmol/L BUN (7-17) mg/dL POC Glucose (mg/dL) (75-99) mg/dL Plasma Lactic Acid Yg (0.7-2.0) mmol/L Calcium (8.4-10.2) mg/dL Iron (37-170) ug/dL TIBC (265-497) ug/dL % Saturation (20-50) % Ferritin (11-264) ng/mL AST (14-36) U/L ALT (9-52) U/L Lactate Dehydrogenase (313-618) U/L Troponin I 0.646 H* (0.000-0.034) ng/mL Total Protein (6.3-8.2) g/dL Albumin (3.5-5.0) g/dL Vitamin B12 (239-931) pg/mL Influenza Type A RNA Detected H (Not Detectd) 10/27/16 10/27/16 10/27/16 Range/Units 17:51 18:35 19:23 WBC (3.8-10.6) k/uL RBC (3.80-5.40) m/uL Hgb (11.4-16.0) gm/dL Hct (34.0-46.0) % RDW (11.5-15.5) % Neutrophils # (1.3-7.7) k/uL Neutrophils # (Manual) (1.3-7.7) k/uL Monocytes # (0-1.0) k/uL Basophils # (0-0.2) k/uL Chloride (98-107) mmol/L BUN (7-17) mg/dL POC Glucose (mg/dL) 166 H (75-99) mg/dL Plasma Lactic Acid Yg 0.6 L (0.7-2.0) mmol/L Calcium (8.4-10.2) mg/dL Iron 14 L (37-170) ug/dL TIBC 216 L (265-497) ug/dL % Saturation 6.5 L (20-50) % Ferritin 1120 H (11-264) ng/mL AST (14-36) U/L ALT (9-52) U/L Lactate Dehydrogenase 1816 H (313-618) U/L Troponin I (0.000-0.034) ng/mL Total Protein (6.3-8.2) g/dL Albumin (3.5-5.0) g/dL Vitamin B12 >1000 H (239-931) pg/mL Influenza Type A RNA (Not Detectd) 10/27/16 10/28/16 10/28/16 Range/Units 21:01 00:34 00:34 WBC 28.5 H* (3.8-10.6) k/uL RBC 2.35 L (3.80-5.40) m/uL Hgb 6.5 L* (11.4-16.0) gm/dL Hct 20.9 L (34.0-46.0) % RDW 16.9 H (11.5-15.5) % Neutrophils # 24.8 H (1.3-7.7) k/uL Neutrophils # (Manual) (1.3-7.7) k/uL Monocytes # 1.1 H (0-1.0) k/uL Basophils # 0.4 H (0-0.2) k/uL Chloride (98-107) mmol/L BUN (7-17) mg/dL POC Glucose (mg/dL) 125 H (75-99) mg/dL Plasma Lactic Acid Yg (0.7-2.0) mmol/L Calcium (8.4-10.2) mg/dL Iron (37-170) ug/dL TIBC (265-497) ug/dL % Saturation (20-50) % Ferritin (11-264) ng/mL AST (14-36) U/L ALT (9-52) U/L Lactate Dehydrogenase (313-618) U/L Troponin I 0.683 H* (0.000-0.034) ng/mL Total Protein (6.3-8.2) g/dL Albumin (3.5-5.0) g/dL Vitamin B12 (239-931) pg/mL Influenza Type A RNA (Not Detectd) 10/28/16 10/28/16 Range/Units 06:25 06:25 WBC 35.9 H* (3.8-10.6) k/uL RBC 3.19 L (3.80-5.40) m/uL Hgb 8.8 L D (11.4-16.0) gm/dL Hct 28.0 L (34.0-46.0) % RDW 16.0 H (11.5-15.5) % Neutrophils # 31.9 H (1.3-7.7) k/uL Neutrophils # (Manual) (1.3-7.7) k/uL Monocytes # 1.5 H (0-1.0) k/uL Basophils # 0.8 H (0-0.2) k/uL Chloride 108 H (98-107) mmol/L BUN 26 H (7-17) mg/dL POC Glucose (mg/dL) (75-99) mg/dL Plasma Lactic Acid Yg (0.7-2.0) mmol/L Calcium 7.9 L (8.4-10.2) mg/dL Iron (37-170) ug/dL TIBC (265-497) ug/dL % Saturation (20-50) % Ferritin (11-264) ng/mL AST 38 H (14-36) U/L ALT 53 H (9-52) U/L Lactate Dehydrogenase (313-618) U/L Troponin I (0.000-0.034) ng/mL Total Protein 5.9 L (6.3-8.2) g/dL Albumin 2.8 L (3.5-5.0) g/dL Vitamin B12 (239-931) pg/mL Influenza Type A RNA (Not Detectd) Assessment and Plan Plan: 1. Acute symptomatic anemia with leukocytosis and possibility of leukemia. Obtained iron studies, B12, folic acid, reticulocyte count, ferritin level, serum protein electrophoresis, urine protein by immunofixation, serum light chain Lambda and Brillion. Hematology consultation will be obtained from Dr. Madrid with plan for outpatient workup. 2. Influenza. Continue Tamiflu. 3. Recent right cataract surgery with minimal bleed behind the globe. Obtained ophthalmology consultation from Dr. Cathy Chairez. continue current eyedrops. 4. 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 Continue Lasix 20 mg orally twice every day, Diovan 320 g orally was every day, Spironolactone 12.5 mg orally twice every day, also Coreg 12.5 mg orally twice every day. 5. Troponin leak of unclear etiology could be related to her anemia. Consult cardiology. 6. History of diabetes mellitus type 2. Continue with sliding scale insulin. +. Hypertension and hypertensive cardiovascular disease. Continue Diovan 320 mg orally once every day, and Coreg 12.5 mg orally twice every day. 8. Recent upper respiratory tract infection. 9. DVT prophylaxis. Heparin 5000 units subcutaneously every 12 hours. 10. GI prophylaxis. Continue Protonix 40 mg orally once every day. 11. Chronic bilateral pleural effusion. Patient has been under the care of pulmonary Dr. Cabrera. 12. Patient is full code. Discharge plan: Home tomorrow Impression and plan of care have been directed as dictated by the signing physician. Ailin Martinez nurse practitioner acting as scribe for signing physician. Time with Patient: Greater than 30
[2016-10-28 16:50] LABS: Glucose,Whole Blood 106 mg/dL (75-99)
[2016-10-28] MEDS: GLIMEPIRIDE 1 MG TAB PO SCH (17:09)
[2016-10-28] MEDS: CYANOCOBALAMIN 500 MCG TAB PO SCH (20:16)
[2016-10-28] MEDS: FERROUS SULFATE 325 MG TAB PO SCH (20:16)
[2016-10-28 20:53] LABS: Glucose,Whole Blood 130 mg/dL (75-99)
[2016-10-29 00:18] VITALS: RESP 16
--- NOTE | 2016-10-29 01:00 | P.CONS ---
History of Present Illness - Reason for Consult Consult date: 10/29/16 Anemia and leucocytosis - History of Present Illness The pt is a 61 yr old lady admitted through the ER with c/o progressive weakness over 1-2 days. She had gone to a restaurant, and became so weak that she could not get up. Her labs on admission showed a Hgb of 6.5 with normal RBC indeces, and WBC of 35.9. Consult was placed for further evaluation. Most of the history was obtained from the daughter at the bedside, and from the EHR, as the pt was very weak. She was admitted in 04/30 with CHF. Multiple records were reviewed. Her Hgb that admission had been in the 11-12 range, with WBC elevated in the teens. WBC had declined to 11-12 by discharge. In 07/30 Hgb was 9.4, and WBC 16-17 K. WBC differential revealed mostly neutrophillia, though mild, but persistent increase in basophils and eosinophils were noted, since 04/30. Platelets were consistently normal, and there was no left shift. There was no prior h/o blood problems. This admission, the pt was found to be positive for Influenza A. She did not get a flu shot this season. Review of Systems Constitutional: Reports fatigue, Reports poor appetite, Reports weakness, Reports weight loss (15-16 lbs in last 6-7 mths) Eyes: denies blurred vision, denies pain Ears: deny: decreased hearing, ear discharge, earache, tinnitus Ears, nose, mouth and throat: Denies headache, Denies sore throat Cardiovascular: Reports orthopnea, Reports shortness of breath Respiratory: Reports dyspnea Gastrointestinal: Reports nausea Genitourinary: Denies dysuria, Denies hematuria Menstruation: Reports postmenopausal Musculoskeletal: Reports muscle weakness Integumentary: Denies pruritus, Denies rash Neurological: Reports weakness Psychiatric: Denies anxiety, Denies depression Endocrine: Reports fatigue, Reports weight change Hematologic/Lymphatic: Reports as per HPI Past Medical History Past Medical History: Heart Failure, Diabetes Mellitus, GERD/Reflux, Hyperlipidemia, Hypertension, Osteoarthritis (OA), Pneumonia Additional Past Medical History / Comment(s): " 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 Patient had an echocardiogram about 2 weeks ago and showed normal ejection fraction according to the patient. diabetic retinopathy. pt stated " was in hospital at [facility] in may 2016 w/ diarrhea.never told if it was c-diff but pt's daughter said she was tx w/abx as if she had it" History of Any Multi-Drug Resistant Organisms: None Reported Past Surgical History: Back Surgery Additional Past Surgical History / Comment(s): ZELDA IN BACK-LAMINECTOMY,rt eye laser sx, right cataract surgery, . Past Anesthesia/Blood Transfusion Reactions: No Reported Reaction Past Psychological History: No Psychological Hx Reported Smoking Status: Never smoker Past Alcohol Use History: None Reported Past Drug Use History: None Reported - Past Family History Mother Family Medical History: Cancer, Hypertension Father Family Medical History: Congestive Heart Failure (CHF) Sister(s) Family Medical History: Congestive Heart Failure (CHF) Brother(s) Family Medical History: No Reported History Daughter(s) Family Medical History: No Reported History Medications and Allergies Home Medications Medication Instructions Recorded Confirmed Type Besivance 0.6% 1 drop RIGHT EYE TID 10/27/16 10/27/16 History Carvedilol [Coreg] 12.5 mg PO BID 10/27/16 10/27/16 History Cyanocobalamin (Vitamin B-12) 1,000 mcg PO HS 10/27/16 10/27/16 History [Vitamin B-12] Difluprednate [Durezol] 1 drop RIGHT EYE DAILY 10/27/16 10/27/16 History Ferrous Sulfate [Feosol] 325 mg PO HS 10/27/16 10/27/16 History Furosemide [Lasix] 20 mg PO BID@0900,1600 10/27/16 10/27/16 History Prolensa 0.07% 1 drop RIGHT EYE DAILY 10/27/16 10/27/16 History Spironolactone [Aldactone] 12.5 mg PO BID 10/27/16 10/27/16 History Valsartan [Diovan] 320 mg PO DAILY 10/27/16 10/27/16 History Allergies Allergy/AdvReac Type Severity Reaction Status Date / Time shellfish derived [Shellfish] Allergy Unknown Verified 10/27/16 12:17 Physical Exam Vitals: Vital Signs Temp Pulse Pulse Resp BP BP Pulse Ox 10/28/16 20:30 98.7 F 79 18 150/70 95 10/28/16 15:26 98.4 F 73 20 131/66 93 L 10/28/16 11:37 99.1 F 73 20 132/71 96 10/28/16 08:00 99.3 F 80 20 135/63 93 L 10/28/16 06:19 100.8 F H 10/28/16 05:36 81 18 151/69 94 L 10/28/16 05:14 99.4 F 80 18 151/71 94 L 10/28/16 05:06 99.4 F 80 18 151/71 94 L 10/28/16 04:56 99.2 F 84 18 156/73 96 10/28/16 04:51 100 F H 84 18 156/73 95 10/28/16 03:00 98.9 F 80 18 153/72 98 10/28/16 02:30 99.2 F 81 16 146/80 95 10/28/16 02:20 99.8 F H 81 16 142/61 96 Intake and Output 10/28/16 10/28/16 10/29/16 14:59 22:59 06:59 Intake Total 690 250 Balance 690 250 Intake: Intake, IV Titration 380 Amount Sodium Chloride 0.9% 1, 380 000 ml @ 100 mls/hr IV . Q10H ONE Rx#:[id number] Oral 250 Blood Product 310 Rc As-1 Unit 310 [id number] Other: # Voids 1 - Constitutional General appearance: no acute distress - EENT Eyes: EOMI, PERRLA ENT: hearing grossly normal, normal oropharynx - Respiratory Respiratory: bilateral: CTA - Cardiovascular Rhythm: regular Heart sounds: normal: S1, S2 - Gastrointestinal General gastrointestinal: normal bowel sounds, soft - Integumentary Integumentary: normal - Neurologic Neurologic: CNII-XII intact - Musculoskeletal Musculoskeletal: generalized weakness, strength equal bilaterally - Psychiatric Psychiatric: A&O x's 3, appropriate affect Results CBC & Chem 7: 10/28/16 06:25 10/28/16 06:25 Labs: Abnormal Lab Results - Last 24 Hours (Table) 10/27/16 10/28/16 10/28/16 Range/Units 17:51 00:34 00:34 WBC 28.5 H* (3.8-10.6) k/uL RBC 2.35 L (3.80-5.40) m/uL Hgb 6.5 L* (11.4-16.0) gm/dL Hct 20.9 L (34.0-46.0) % RDW 16.9 H (11.5-15.5) % Neutrophils # 24.8 H (1.3-7.7) k/uL Monocytes # 1.1 H (0-1.0) k/uL Basophils # 0.4 H (0-0.2) k/uL Haptoglobin 307.0 H (31.2-198.0) mg/dL Chloride (98-107) mmol/L BUN (7-17) mg/dL POC Glucose (mg/dL) (75-99) mg/dL Calcium (8.4-10.2) mg/dL AST (14-36) U/L ALT (9-52) U/L Troponin I 0.683 H* (0.000-0.034) ng/mL Total Protein (6.3-8.2) g/dL Albumin (3.5-5.0) g/dL 10/28/16 10/28/16 10/28/16 Range/Units 06:25 06:25 11:30 WBC 35.9 H* (3.8-10.6) k/uL RBC 3.19 L (3.80-5.40) m/uL Hgb 8.8 L D (11.4-16.0) gm/dL Hct 28.0 L (34.0-46.0) % RDW 16.0 H (11.5-15.5) % Neutrophils # 31.9 H (1.3-7.7) k/uL Monocytes # 1.5 H (0-1.0) k/uL Basophils # 0.8 H (0-0.2) k/uL Haptoglobin (31.2-198.0) mg/dL Chloride 108 H (98-107) mmol/L BUN 26 H (7-17) mg/dL POC Glucose (mg/dL) 134 H (75-99) mg/dL Calcium 7.9 L (8.4-10.2) mg/dL AST 38 H (14-36) U/L ALT 53 H (9-52) U/L Troponin I (0.000-0.034) ng/mL Total Protein 5.9 L (6.3-8.2) g/dL Albumin 2.8 L (3.5-5.0) g/dL 10/28/16 10/28/16 Range/Units 16:44 20:52 WBC (3.8-10.6) k/uL RBC (3.80-5.40) m/uL Hgb (11.4-16.0) gm/dL Hct (34.0-46.0) % RDW (11.5-15.5) % Neutrophils # (1.3-7.7) k/uL Monocytes # (0-1.0) k/uL Basophils # (0-0.2) k/uL Haptoglobin (31.2-198.0) mg/dL Chloride (98-107) mmol/L BUN (7-17) mg/dL POC Glucose (mg/dL) 106 H 130 H (75-99) mg/dL Calcium (8.4-10.2) mg/dL AST (14-36) U/L ALT (9-52) U/L Troponin I (0.000-0.034) ng/mL Total Protein (6.3-8.2) g/dL Albumin (3.5-5.0) g/dL Chest x-ray: report reviewed CT Scan - head: report reviewed Assessment and Plan (1) Leukocytosis Narrative/Plan: This appears to be persistent since at least 04/30. There is no significant left shift, but a miild basophilia and eosinophilia. This is suspcious for a myeloproliferative disorder. I will check LAP score as initial w/u. If normal or low, will proceed with additional labs, including specific gene markers. Status: Acute (2) Anemia Narrative/Plan: This is quite significant vs before. Anemia w/u has already been ordered by the admitting service. There is no evidence of bleeding ( high ferritin > 1000) or hemolysis. Thus a hypoproliferative anemia appears most likely. - Hgb is improved into a safe range with transfusion. Continue to monitor , with additional tranfusions as needed - Await rest of anemia w/u. If negative, f/u as outpt. If anemia persists, I will plan a bone marrow. Status: Acute (3) Influenza A Narrative/Plan: On Tamiflu. Defer to admitting service for further management Status: Acute
[2016-10-29] MEDS: ACETAMINOPHEN TAB 325 MG TAB PO PRN (05:07)
[2016-10-29 06:14] LABS: Glucose,Whole Blood 85 mg/dL (75-99)
[2016-10-29] MEDS: CARVEDILOL 12.5 MG TAB PO SCH ×2 (06:19→17:12)
[2016-10-29] MEDS: PANTOPRAZOLE 40 MG TABLET PO SCH (06:20)
[2016-10-29] MEDS: GLIMEPIRIDE 2 MG TAB PO SCH (09:00)
[2016-10-29] MEDS: amLODIPine 5 MG TAB PO SCH (09:00)
--- NOTE | 2016-10-29 09:00 | ECHOF ---
Referral Reason:chf MEASUREMENTS -------- HEIGHT: 157.5 cm WEIGHT: 51.3 kg BP: 135/63 RVIDd: 3.1 cm (< 3.3) IVSd: 1.2 cm (0.6 - 1.1) LVIDd: 4.3 cm (3.9 - 5.3) LVPWd: 1.1 cm (0.6 - 1.1) IVSs: 1.2 cm LVIDs: 2.7 cm LVPWs: 1.3 cm LA Diam: 4.9 cm (2.7 - 3.8) LAESV Index (A-L): 31.95 ml/m Ao Diam: 2.7 cm (2.0 - 3.7) AV Cusp: 1.4 cm (1.5 - 2.6) LA Diam: 4.7 cm (2.7 - 3.8) MV EXCURSION: 14.595 mm (> 18.000) MV EF SLOPE: 64 mm/s (70 - 150) EPSS: 0.6 cm MV E Jay: 0.81 m/s MV DecT: 161 ms MV A Jay: 0.93 m/s MV E/A Ratio: 0.87 RAP: 5.00 mmHg RVSP: 30.77 mmHg FINDINGS -------- Sinus rhythm. This was a technically excellent study. LV size, wall thickness and systolic function are normal, with an EF greater than 55%. The right ventricle is normal in size. LA is moderately dilated 34-39 ml/m2 The right atrial size is normal. There is mild aortic valve sclerosis. There is no evidence of aortic regurgitation. Mild mitral annular calcification present. Mild mitral regurgitation is present. Mild tricuspid regurgitation present. There is no evidence of pulmonary hypertension. The right ventricular systolic pressure, as measured by Doppler, is 30.77mmHg. There is no pulmonic regurgitation present. The aortic root size is normal. There is no pericardial effusion. CONCLUSIONS -------- 1. LV size, wall thickness and systolic function are normal, with an EF greater than 55%. 2. LA is moderately dilated 34-39 ml/m2 3. There is mild aortic valve sclerosis. 4. Mild mitral annular calcification present. 5. Mild mitral regurgitation is present. 6. Mild tricuspid regurgitation present. 7. There is no evidence of pulmonary hypertension. 8. The right ventricular systolic pressure, as measured by Doppler, is 30.77mmHg. ROAD ENGINEER FREIGHT: Irma Andersen RDCS
[2016-10-29] MEDS: FUROSEMIDE 20 MG TAB PO SCH ×2 (09:01→17:12)
[2016-10-29] MEDS: OSELTAMIVIR 75 MG CAP PO SCH (09:01)
[2016-10-29] MEDS: ASPIRIN 81 MG CHEW PO SCH (09:01)
[2016-10-29] MEDS: SPIRONOLACTONE 25 MG TAB PO SCH (09:01)
[2016-10-29] MEDS: VALSARTAN 160 MG TAB PO SCH (09:02)
[2016-10-29] MEDS: BESIVANCE 0.6% RIGHT EYE SCH ×2 (09:04→17:11)
[2016-10-29] MEDS: ILEVRO 0.3% RIGHT EYE SCH (09:05)
[2016-10-29] MEDS: DUREZOL RIGHT EYE SCH (09:05)
[2016-10-29] MEDS: HEPARIN SODIUM,PORCINE 5,000 UNIT/ML 1 ML VIAL SQ SCH (09:21)
[2016-10-29 11:33] LABS: Glucose,Whole Blood 165 mg/dL (75-99)
[2016-10-29 11:58] LABS: Anisocytosis Slight; CH 28.8; CHCM 32.5; HCT 28.6 % (34.0-46.0); HDW 3.05; HGB 9.2 gm/dL (11.4-16.0); MCH 28.6 pg (25.0-35.0); MCHC 32.1 g/dL (31.0-37.0); MCV 89.1 fL (80.0-100.0); Mean Platelet Volume 8.8; RBC 3.21 m/uL (3.80-5.40); RDW 16.1 % (11.5-15.5)
[2016-10-29 11:59] LABS: ALT 52 U/L (9-52); AST 38 U/L (14-36); Alkaline Phosphatase 139 U/L (38-126); Anion Gap 9 mmol/L; Blood Urea Nitrogen 22 mg/dL (7-17); Calcium 7.9 mg/dL (8.4-10.2); Carbon Dioxide 23 mmol/L (22-30); Chloride 106 mmol/L (98-107); Glucose 179 mg/dL (74-99); Non-African American GFR(MDRD) >60 (>60 ml/min/1.73 sqM); Potassium 3.9 mmol/L (3.5-5.1); Sodium 138 mmol/L (137-145); Total Bilirubin 0.3 mg/dL (0.2-1.3); Total Protein 5.8 g/dL (6.3-8.2)
[2016-10-29 12:06] LABS: WBC 35.8 k/uL (3.8-10.6)
[2016-10-29 16:00] VITALS: BP 139/70; PULSE 74; TEMP 98.4
[2016-10-29 16:42] LABS: Glucose,Whole Blood 113 mg/dL (75-99)
[2016-10-29] MEDS: GLIMEPIRIDE 1 MG TAB PO SCH (17:13)
--- NOTE | 2016-12-10 14:05 | P.DS ---
Providers Date of admission: 10/27/16 16:03 Expected date of discharge: 10/29/16 Attending physician: Chet Romero Consults: 10/27/16 16:07 Consult Physician Urgent Consulting Provider: [facility] Consult Reason/Comments: Elevated troponin Do you want consulting provider notified?: Yes 10/27/16 17:02 Consult Physician Urgent Consulting Provider: Eliza Morgan Consult Reason/Comments: bleeding post eye-sx Do you want consulting provider notified?: Yes Primary care physician: Aminah Ortiz [facility] Course: This is a 61-year-old female one of Dr. Ortiz with a previous medical history significant for hypertension and hypertensive cardio vascular disease, diabetes mellitus type 2 with diabetic retinopathy followed by laser therapy and recent cataract surgery by 2 weeks ago of the right eye, history of proteinuria, and leukocytosis , patient was brought into the emergency department at [facility] with her daughter via EMS after she went with her daughter to [facility] in the morning and she did not get up after that after she had a a soup and a salad and she could not go back home, patient stated that yesterday she had felt quite weak and she could not go to the bathroom because of generalized weakness and significant vertigo without any nausea or vomiting at that time. Patient was seen in the ER and had a computed tomography scan of the brain that did not show any evidence of acute infarct or bleed, there was some changes in the back of the right eye, patient was not dizzy at the time of evaluation she did receive meclizine and Valium in the ER however I was called to come and see the patient because of abnormal laboratory evaluation including leukocytosis and anemia with elevated troponin. I reviewed her EKG and it was normal sinus rhythm without any acute ST-T wave changes, we will continue to monitor the patient very closely and we will check iron studies, reticulocyte count, also will check a urine protein by immunofixation test and serum protein electrophoresis along with light chain protein as well. 10/28: White count is up to 35.9. Hemoglobin of 8.8 after 2 units of packed RBCs. Iron, TIBC and iron saturation are all low. Ferritin is 1120. AST and ALT are slightly elevated. Repeat troponins were 0.646 and 0.683. Cardiology is on consult with recommendations for medical management. Echocardiogram has been ordered. Oncology is on consult with plan for outpatient workup. She is continued on Tamiflu. Anticipate discharge home tomorrow. 10/29: Echocardiogram reveals EF greater than 55%, LA moderately dilated, mild aortic valve sclerosis, mild mitral regurgitation, mild tricuspid regurgitation , no pulmonary hypertension. Cough and fever better. Patient will be discharged home today in stable condition. Discharge diagnoses: 1. Acute symptomatic anemia with leukocytosis and possibility of leukemia. 2. Influenza. Continue Tamiflu. 3. Recent right cataract surgery with minimal bleed behind the globe. 4. 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 5. Troponin leak of unclear etiology could be related to her anemia. 6. History of diabetes mellitus type 2. 7. Hypertension and hypertensive cardiovascular disease. 8. Recent upper respiratory tract infection. 9. Chronic bilateral pleural effusion. Patient has been under the care of pulmonary Dr. Cabrera. Discharge plan: Home Impression and plan of care have been directed as dictated by the signing physician. Ailin Martinez nurse practitioner acting as scribe for signing physician. Patient Condition at Discharge: Good Plan - Discharge Summary New Discharge Prescriptions: Oseltamivir [Tamiflu] 75 mg PO Q12HR #6 cap Discharge Medication List Aspirin 81 mg PO DAILY chew 04/28/16 [Rx] Glimepiride [Amaryl] 1 mg PO AC-SUPPER #30 tab 04/28/16 [Rx] Glimepiride [Amaryl] 2 mg PO AC-BRKFST #30 tab 04/28/16 [Rx] amLODIPine [Norvasc] 5 mg PO DAILY #30 tab 04/28/16 [Rx] Besivance 0.6% 1 drop RIGHT EYE TID 10/27/16 [History] Carvedilol [Coreg] 12.5 mg PO BID 10/27/16 [History] Cyanocobalamin (Vitamin B-12) [Vitamin B-12] 1,000 mcg PO HS 10/27/16 [History] Difluprednate [Durezol] 1 drop RIGHT EYE DAILY 10/27/16 [History] Ferrous Sulfate [Feosol] 325 mg PO HS 10/27/16 [History] Furosemide [Lasix] 20 mg PO BID@0900,1600 10/27/16 [History] Prolensa 0.07% 1 drop RIGHT EYE DAILY 10/27/16 [History] Spironolactone [Aldactone] 12.5 mg PO BID 10/27/16 [History] Valsartan [Diovan] 320 mg PO DAILY 10/27/16 [History] Oseltamivir [Tamiflu] 75 mg PO Q12HR #6 cap 10/29/16 [Rx] Follow up Appointment(s)/Referral(s): Jamal Madrid MD [STAFF PHYSICIAN] - 2 Weeks (Please call to schedule a follow up appointment with Dr Madrid. ) Aminah Ortiz MD [Primary Care Provider] - 1 Week (Please call the office to schedule follow up appointment with Dr Ortiz ) Patient Instructions/Handouts: Influenza (DC) Discharge Disposition: HOME SELF-CARE
== END 2016-10-29 18:14 | disposition home or self-care (01) | DRG 812 ==
LOC: EC 11:22 → 6SEL 16:03
PROVIDERS: ADMIT Internal Medicine; ATTEND Internal Medicine
PROC: 30233N1 Transfusion of Nonautologous Red Blood Cells into Peripheral Vein, Percutaneous Approach (ICD-10-PCS; principal; 2016-10-28)
DX: D64.9 Anemia, unspecified (principal); I11.0 Hypertensive heart disease with heart failure; I50.22 Chronic systolic (congestive) heart failure; C95.90 Leukemia, unspecified not having achieved remission; I51.81 Takotsubo syndrome; J10.1 Influenza due to other identified influenza virus with other respiratory manifestations; D72.1 Eosinophilia; J06.9 Acute upper respiratory infection, unspecified; E11.319 Type 2 diabetes mellitus with unspecified diabetic retinopathy without macular edema; K21.9 Gastro-esophageal reflux disease without esophagitis; E78.5 Hyperlipidemia, unspecified; M19.91 Primary osteoarthritis, unspecified site; Z98.41 Cataract extraction status, right eye; Z79.82 Long term (current) use of aspirin; Z79.899 Other long term (current) drug therapy; Z79.84 Long term (current) use of oral hypoglycemic drugs
CPT/HCPCS: 36415; 70450; 71020; 80053; 81001; 82550; 82553; 82607; 82728; 82746; 83010; 83540; 83550; 83605; 83615; 83735; 84484; 85025; 85027; 85045; 85610; 85730; 86038; 86334; 86335; 86431; 86850; 86900; 86901; 86920; 87040; 87502; 93005; 93306; 96374; 99285

== ENCOUNTER → 2017-04-23 | Outpatient (CLI) | payer BC ==
[2017-04-23 08:27] LABS: Anisocytosis Slight; Basophils % (A) 1 %; CH 28.4; Eosinophils # (A) 0.2 k/uL (0-0.7); Eosinophils % (A) 5 %; HCT 23.1 % (34.0-46.0); HDW 2.98; HGB 7.6 gm/dL (11.4-16.0); Luc # (Auto) 0.12; Luc % (Auto) 2; Lymphocytes # (A) 0.6 k/uL (1.0-4.8); Lymphocytes % (A) 13 %; MCH 28.5 pg (25.0-35.0); MCV 86.5 fL (80.0-100.0); Mean Platelet Volume 7.3; Monocytes # (A) 0.1 k/uL (0-1.0); Monocytes % (A) 3 %; Neutrophils # (A) 3.9 k/uL (1.3-7.7); Neutrophils % (A) 77 %; RBC 2.67 m/uL (3.80-5.40); RDW 16.7 % (11.5-15.5); WBC 5.1 k/uL (3.8-10.6); WBC (Perox) 5.29
[2017-04-23 08:50] LABS: Appearance,Urine Clear (Clear); Bilirubin,Urine Negative (Negative); Glucose,Urine (UA) 1+ (Negative); Ketones,Urine Negative (Negative); Leukocyte Esterase,Urine Negative (Negative); Mucus,Urine Rare /hpf; Nitrite,Urine Negative (Negative); PH, Urine 6.5 (5.0-8.0); Particle Count 3062; Protein,Urine 3+ (Negative); RBC,Urine 14 /hpf (0-5); Specific Gravity,Urine 1.013 (1.001-1.035); Squamous Epithelial Cell,Urine <1 /hpf (0-4); UA Billing (MACRO vs. MICRO) MICRO; Urobilinogen,Urine <2.0 mg/dL (<2.0); WBC,Urine 2 /hpf (0-5)
[2017-04-23 11:28] LABS: Calcium 7.9 mg/dL (8.4-10.2); Phosphorous 4.6 mg/dL (2.5-4.5); Potassium 4.6 mmol/L (3.5-5.1); Total Bilirubin 0.3 mg/dL (0.2-1.3); Total Protein 5.6 g/dL (6.3-8.2)
[2017-04-23 11:37] LABS: % Iron Saturation 23.1 % (20-50)
== END | disposition home or self-care (01) ==
LOC: LABWHC1 08:00
PROVIDERS: ATTEND Family Medicine
DX: N17.9 Acute kidney failure, unspecified (principal)
CPT/HCPCS: 36415; 80053; 81001; 81050; 82550; 82575; 83540; 83550; 83735; 84100; 84156; 84165; 85025; 86038; 86335